=== PATIENT | female | born 1995 | race Caucasian/White ===

== ENCOUNTER 2022-09-28 22:00 | Inpatient (IN) | payer OTHER ==
[2022-09-28] MEDS: ELECTROLYTE-148 SOLN 1,000 ML IV SCH (23:00)
[2022-09-28 23:21] LABS: BASO % 0.4 % (0-2.0); EOS % 0.8 % (0-4.5); HEMOGLOBIN 11.4 GM/dL (10.7-15.3); LYMPH % 24.1 % (8-40); MCH 28.6 pg (25.7-33.7); MCHC 33.6 g/dl (32.0-36.0); MEAN PLT VOLUME 8.5 fl (7.5-11.1); MONO % 6.5 % (3.8-10.2); NEUT % 68.2 % (42.8-82.8); PLATELET COUNT 254 10^3/uL (134-434); RDW 15.5 % (11.6-15.6); WHITE BLOOD COUNT 10.1 K/mm3 (4.0-10.0)
[2022-09-28 23:34] LABS: INR 0.9 (0.83-1.09); PROTHROMBIN TIME (PATIENT) 10.5 SEC (9.7-13.0)
[2022-09-28 23:45] VITALS: BMI 38.2
[2022-09-28 23:46] LABS: POTASSIUM 4.3 mmol/L (3.5-5.1)
[2022-09-28 23:47] LABS: CALCIUM 9.3 mg/dL (8.5-10.1)
[2022-09-28 23:48] LABS: BLOOD UREA NITROGEN 9.9 mg/dL (7-18)
[2022-09-29] MEDS ORDERED: PROMETHAZINE HCL 25 MG/1 ML VIAL ONE (00:46)
[2022-09-29] MEDS ORDERED: BUTORPHANOL TARTRATE 1 MG/ML VIAL ONE (00:46)
[2022-09-29] MEDS ORDERED: PROMETHAZINE HCL 25 MG/1 ML VIAL IVPB ONE (01:14)
[2022-09-29] MEDS ORDERED: BUTORPHANOL TARTRATE 1 MG/ML VIAL IVPB ONE (01:14)
[2022-09-29 02:16] LABS: HIV INTERPRETATION NEGATIVE (NEGATIVE)
[2022-09-29] MEDS ORDERED: FENTANYL/BUPIVACAINE/NS/PF - PCEA - 50 ML DISP.SYRIN EP ONE ×3 (04:43→13:06)
[2022-09-29] MEDS ORDERED: BUPIVACAINE HCL/PF 0.25% (2.5MG/ML) 10 ML VIAL ONE (04:55)
[2022-09-29] MEDS ORDERED: NALOXONE HCL 0.4 MG/ML VIAL IVPUSH PRN (05:20)
[2022-09-29] MEDS ORDERED: FENTANYL/BUPIVACAINE/NS/PF - PCEA - 50 ML DISP.SYRIN EP SCH (05:30)
[2022-09-29] MEDS: FENTANYL/BUPIVACAINE/NS/PF - PCEA - 50 ML DISP.SYRIN EP SCH ×2 (09:10→13:05)
[2022-09-29 10:03] LABS: POC NITRAZINE POS
[2022-09-29] MEDS: ELECTROLYTE-148 SOLN 1,000 ML IV SCH (11:15)
[2022-09-29] MEDS ORDERED: ELECTROLYTE-148 SOLN 1,000 ML IV ONE (13:00)
[2022-09-29] MEDS ORDERED: ELECTROLYTE-148 SOLN 1,000 ML IV SCH (13:30)
[2022-09-29] MEDS ORDERED: CITRIC ACID/SODIUM CITRATE 30 ML UNIT-DOSE CUP PO ONE (14:30)
[2022-09-29] MEDS ORDERED: OXYTOCIN 20 UNITS in 0.9% NS 20 UNIT/1,000 ML INFUS.BAG IV ONE (14:36)
[2022-09-29] MEDS ORDERED: LIDOCAINE HCL 1% PRESERVATIVE FREE - 30ML VIAL ONE (14:36)
[2022-09-29] MEDS ORDERED: METHYLERGONOVINE MALEATE 0.2 MG/1 ML AMP IM PRN (15:22)
[2022-09-29] MEDS ORDERED: ACETAMINOPHEN 325 MG TABLET (FP) PO PRN (15:22)
[2022-09-29] MEDS ORDERED: BISACODYL 10 MG SUPP.RECT RC PRN (15:22)
[2022-09-29] MEDS ORDERED: BENZOCAINE 28 GM HEMORRHOIDAL OINTMENT TP PRN (15:22)
[2022-09-29] MEDS ORDERED: WITCH HAZEL 50% (TUCKS) 40 PAD/JAR PAD TP PRN (15:22)
[2022-09-29] MEDS ORDERED: OXYTOCIN 20 UNITS in 0.9% NS 20 UNIT/1,000 ML INFUS.BAG IV SCH (15:30)
[2022-09-29 15:52] LABS: CORD HCO3 20.6 mmHg (20-29); CORD PCO2 36.5 mmHg (30-78); CORD pH 7.369 (7.14-7.44)
[2022-09-30] MEDS: IBUPROFEN 600 MG TABLET (FP) PO PRN (09:07)
[2022-09-30] MEDS: BENZOCAINE 20% 57 GM BOTTLE TP PRN (09:10)
[2022-09-30 09:23] LABS: BASO % 0.3 % (0-2.0); EOS % 0.4 % (0-4.5); HEMATOCRIT 30.8 % (32.4-45.2); MCH 28.2 pg (25.7-33.7); MCHC 32.3 g/dl (32.0-36.0); MEAN CELL VOLUME 87.4 fl (80-96); MEAN PLT VOLUME 8.8 fl (7.5-11.1); MONO % 5.2 % (3.8-10.2); NEUT % 79.1 % (42.8-82.8); PLATELET COUNT 232 10^3/uL (134-434); RBC 3.53 M/mm3 (3.60-5.2); RDW 16.2 % (11.6-15.6); WHITE BLOOD COUNT 16.1 K/mm3 (4.0-10.0)
[2022-09-30] MEDS ORDERED: SENNOSIDES/DOCUSATE COMBO (SENNA PLUS) TABLET (UD) PO PRN (22:00)
[2022-10-01] MEDS: IBUPROFEN 600 MG TABLET (FP) PO PRN (08:30)
[2022-10-01 10:03] VITALS: BP 125/75; PULSE 90; RESP 17; TEMP 97
[2022-10-01] MEDS: BENZOCAINE 20% 57 GM BOTTLE TP PRN (12:36)
== END 2022-10-01 13:30 | disposition home or self-care (01) | DRG 560 ==
LOC: JDEL 22:00 → JLDR 22:25 → J3W 09-29 17:00
PROVIDERS: ADMIT Obstetrics & Gynecology; ATTEND Obstetrics & Gynecology
PROC: 10E0XZZ Delivery of Products of Conception, External Approach (ICD-10-PCS; principal; 2022-09-29)
PROC: 0UQGXZZ Repair Vagina, External Approach (ICD-10-PCS; 2022-09-29)
DX: O71.4 Obstetric high vaginal laceration alone (principal); O99.213 Obesity complicating pregnancy, third trimester; Z3A.39 39 weeks gestation of pregnancy; Z37.0 Single live birth
CPT/HCPCS: 36415; 36600; 80048; 80053; 81003; 82803; 83986-QW; 84550; 85025; 85610; 85730; 86780; 86850; 86900; 86901; 87389